=== PATIENT | female | born 1980 | race Caucasian/White ===

== ENCOUNTER 2017-02-08 08:07 | Inpatient (IN) | payer OTHER ==
[2017-02-08] VITALS (114 sets, daily range): BP systolic 98–156; BP diastolic 41–104; PULSE 77–122; RESP 1–18; TEMP 97.7–99.5; O2SAT 99
[~2017-02-08] VITALS: Ht 167.6 cm; Wt 78.5 kg
[~2017-02-08 08:07] MED LIST: IBUP-238 PO; PRENTAB72 PO; ZOLO50TA OR
[2017-02-08] MEDS ORDERED: LACTATED RINGER'S 1000 ML INJ 1,000 ML IV PRN (08:32)
[2017-02-08] MEDS ORDERED: ONDANSETRON HCL 4 MG/2 ML VIAL IV PRN (08:45)
[2017-02-08] MEDS ORDERED: SODIUM CHLORID 0.9% 500 ML INJ 500 ML IV PRN (08:45)
[2017-02-08] MEDS ORDERED: LIDOCAINE HCL 1% 50 ML VIAL I-DERMAL PRN (08:45)
[2017-02-08] MEDS ORDERED: MINERAL OIL 10 ML VIAL TOPICAL PRN (08:45)
[2017-02-08] MEDS ORDERED: OXYTOCIN 30 UNITS-500ML PREMIX 500 ML IV SCH (08:45)
[2017-02-08] MEDS ORDERED: LIDOCAINE HCL 1% 50 ML VIAL INFIL PRN (08:45)
[2017-02-08] MEDS ORDERED: CITRIC ACID-SODIUM CITRATE LIQ 30 ML UDC PO SCH (08:45)
[2017-02-08] MEDS ORDERED: OXYTOCIN 30 UNITS-500ML PREMIX 500 ML IV ONE (08:45)
--- NOTE | 2017-02-08 08:48 | HHI.HP ---
HPI Chief Complaint scheduled term labor induction, favorable Dudley score Date Seen: February 08, 2017 Time Seen: 08:30 Travel History International Travel<30 Days: No Contact w/Intl Traveler<30Days: No Known Affected Area: No History of Present Illness HPI 36 yo with EDC 02/12/17 presents for labor induction at term due to favorable Dudley score in office. 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 Pt c/o irregular contractions and pelvic pressure, /. No LOF or VB. Good FM. Para: 1 : 2 Last Menstrual Period: May 08, 2016 Miscarriage: 0 : 0 History Past Medical History Narrative Medical h/o Jian's thyroiditis chronic anxiety advanced maternal age with G2 Obstetric History Obstetric History G1 = 08/2012 FT at 41 wks, 12h labor, male 7# G2= current, male Past Surgical History Surgical History: No Previous Surgery Family History Family History: Negative Social History Alcohol Use: No Tobacco Use: No Substance Abuse: No Allergies-Medications (Allergen,Severity, Reaction): Coded Allergies: No Known Allergies (Unverified , 08/23/12) Home Meds Reported Medications Ibuprofen (Motrin)800 Mg [id number] Mg PO Q8HPRN #30 08/25/12 Vit W/ Ferrous Fumara () Tab1 Tab PO DAILY 08/23/12 Sertraline HCl (Zoloft)50 Mg Tab50 Mg OR DAILY 08/23/12 Review of Systems General / Constitutional: Weight Gain, No: Fever, Chills, Other Eyes: No: Diploplia, Blurred Vision, Visual changes, Pain, Photophobia HENT: No: Headaches, Vertigo, Lightheadedness Cardiovascular: No: Irregular Rhythm, Chest Pain or Discomfort, Palpitations, Tachycardia, Syncope, Varicosities, Edema, Cyanosis Respiratory: No: Cough, Short of Breath, Other Gastrointestinal: No: Nausea, Vomiting, Diarrhea Genitourinary: Pelvic Pain (pressure), No: Decreased Urinary Output, Oliguria Musculoskeletal: No: Limited ROM, Weakness, Cramping, Edema, Pain Skin: No Rash, No Itching, No Dryness, No Lumps, No Change in Pigmentation, No Change in Nails, No Alopecia, No Lesions Neurologic: No: Weakness, Dizziness, Syncope, Focal Abnormalities, Coordination Problem, Headache, Slurred Speech, Seizures Psychiatric: No: Depression, Suicidal Ideations, Homicidal Ideation Endocrine: No: Heat Intolerance, Cold Intolerance, Polydipsia, Polyuria, Other Physical Exam Narrative GENERAL: Well-nourished, well-developed patient. SKIN: Warm and dry. HEAD: Normocephalic and atraumatic. EYES: No scleral icterus. No injection or drainage. ENT: No nasal drainage noted. Mucous membranes pink. Airway patent. NECK: Supple, trachea midline. No JVD. CARDIOVASCULAR: Regular rate and rhythm without murmurs, gallops, or rubs. RESPIRATORY: Breath sounds equal bilaterally. No accessory muscle use. BREASTS: deferred. ABDOMEN/GI: Abdomen soft, non-tender, bowel sounds present, no rebound, no guarding Gravid to [39] weeks size Fundal Height: [39] GENITOURINARY: External Genitalia: intact and normal in appearance BUS glands: [wnl] Cervix: [mid] Dilatation: [2-3] Effacement: [50] Station: [-2] Presentation: [vtx] Membranes: [intact] Uterine Contractions: [irregular] FHT's: Category: I EXTREMITIES: No cyanosis or edema. BACK: Nontender without obvious deformity. No CVA tenderness. NEUROLOGICAL: Awake and alert. Motor and sensory grossly within normal limits. Five out of 5 muscle strength in all muscle groups. Normal speech. Data Data Vital Signs Reviewed: Yes Orders Admit To Inpatient (02/08/17 ) Code Status (02/08/17 08:32) Vital Signs (Adult) .Per protocol (02/08/17 08:32) Activity Oob Ad Merry (02/08/17 08:32) Heart (02/08/17 08:32) Amnioinfusion (02/08/17 08:32) Urinary Catheter Management .ONCE (02/08/17 08:32) Diet Liquid (02/08/17 Breakfast) Lactated Ringer's 1000 Ml Inj (Lr 1000 M (02/08/17 08:32) Lactated Ringer's 1000 Ml Inj (Lr 1000 M (02/08/17 08:32) Sodium Chlorid 0.9% 500 Ml Inj (Ns 500 M (02/08/17 08:45) Sodium Chlor 0.9% 1000 Ml Inj (Ns 1000 M (02/08/17 08:52) Lidocaine 1% Inj (50 Ml) (Xylocaine 1% I (02/08/17 08:45) Citric Acid-Sodium Citrate Liq (Bicitra (02/08/17 08:45) Ondansetron Inj (Zofran Inj) (02/08/17 08:45) Fentanyl Inj (Fentanyl Inj) (02/08/17 08:45) Fentanyl Inj (Fentanyl Inj) (02/08/17 08:45) Complete Blood Count With Diff (02/08/17 08:32) Hold Clot (02/08/17 08:32) Abo/Rh Blood Type (02/08/17 08:32) Urinalysis - C+S If Indicated (02/08/17 08:32) Resp Oxygen Non Rebreathe Mask (02/08/17 ) ^ Epidural / Intrathecal Infus (02/08/17 08:32) Oxytocin 30 Units-500ml Premix (Pitocin (02/08/17 08:45) Lidocaine 1% Inj (50 Ml) (Xylocaine 1% I (02/08/17 08:45) Light Mineral Oil (Muri-Lube Oil) (02/08/17 08:45) Inpatient Certification (02/08/17 ) Specimen To Be Collected PRN (02/08/17 08:32) Assessment/Plan Problem List: (1) Term (2) Labor and delivery indication for care or intervention Assessment and Plan 36 yo with edward male IUP at 39w3d by LMP c/w 11 wk sono, presents for term labor induction 1) IOL: favorable Dudley's score, pt aware of r/b/a & risk of failure, consents signed, plan pitocin/AROM as needed 2) GBS neg 3) AMA: neg cfDNA neg msAFP normal anatomy scan 4) h/o Jian's, now hypothyroid, controlled on levothyroxine 100mcg daily, continue 5) chronic anxiety, controlled on Zoloft 50mg daily x years 6) status: vertex, Cat I tracing, male, normal weekly testing in office since 36 wks due to maternal Zoloft use & AMA Discharge Planning routine, 2-3d PP Bronwyn Hinds MD February 08, 2017 08:48
[2017-02-08] MEDS ORDERED: SODIUM CHLOR 0.9% 1000 ML INJ 1,000 ML IV PRN (08:52)
[2017-02-08] MEDS: LACTATED RINGER'S 1000 ML INJ 1,000 ML IV SCH ×3 (08:58→15:15)
[2017-02-08 09:20] LABS: BACTERIA, URINE RARE /hpf; BLOOD, URINE NEG (NEG); COMMENT (UR) CULT NOT INDICATED; CULTURE IF INDICATED CULT NOT INDICATED; GLUCOSE,URINE NEG (NEG); KETONE, URINE NEG (NEG); MUCUS URINE FEW /lpf (OCC); NITRITE,URINE NEG (NEG); PH, URINE 7.5 (5.0-8.5); SQUAMOUS EPITHELIAL CELL URINE 7 /hpf (0-5); URINE COLOR YELLOW (YELLW/STRAW)
[2017-02-08 10:22] LABS: AUTOMATED NEUTROPHIL # 10.6 TH/MM3 (1.8-7.7); BASOPHIL % 0.1 % (0.0-2.0); EOSINOPHIL % 0.2 % (0.0-4.0); HEMATOCRIT 36.1 % (35.0-46.0); HEMO FLAGS DIFF FINAL; LYMPH % 17.1 % (9.0-44.0); LYMPHOCYTE # 2.3 TH/MM3 (1.0-4.8); MEAN CORPUSCULAR HEMOGLOBIN 30.6 PG (27.0-34.0); MEAN CORPUSCULAR HGB CONC 33.3 % (32.0-36.0); MONO % 4.2 % (0.0-8.0); NEUT % 78.4 % (16.0-70.0); PLATELET COUNT 175 TH/MM3 (150-450); RED BLOOD COUNT 3.93 MIL/MM3 (4.00-5.30); RED CELL DISTRIBUTION WIDTH 13.2 % (11.6-17.2); WHITE BLOOD COUNT 13.5 TH/MM3 (4.0-11.0)
--- NOTE | 2017-02-08 12:13 | PD.LABORPN ---
Subjective Subjective feeling slightly anxious but no consistent pain from contractions, denies LOF, endorses good FM Objective Vital Signs Vital Signs Date Time Temp Pulse Resp B/P Pulse Ox O2 Delivery O2 Flow Rate FiO2 02/08/17 12:02 98.8 02/08/17 11:41 99.2 02/08/17 11:40 16 02/08/17 11:37 91 143/86 02/08/17 11:37 12 02/08/17 11:30 93 151/89 02/08/17 11:05 100 154/87 02/08/17 11:00 95 150/82 02/08/17 10:59 100 144/89 02/08/17 10:52 16 02/08/17 10:45 100 155/87 02/08/17 10:30 99 151/86 02/08/17 10:29 101 150/88 02/08/17 10:25 105 02/08/17 10:19 84 147/84 02/08/17 10:14 88 149/85 02/08/17 08:56 98.5 02/08/17 08:55 12 02/08/17 08:54 88 134/77 Objective Pelvic Exam: Cervix: mid Dilatation: [3] Effacement: [50] Station: [-2] Presentation: [vtx] Membranes: AROM'd this check, clear Uterine Contractions: [q4-5 min] FHT's: Category: [I] Baseline: [130s] Reactive: [y] Variability: [y] Decels: [n] Assessment/Plan Problem List: (1) Term (2) Labor and delivery indication for care or intervention Assessment and Plan 36 yo at 39w3d IOL at term AROM'd this check, continue pitocin augmentation, epidural if desired BP slightly elevated & proteinuria, will check CMP/UA; possible anxiety component to BP currently status: Cat I tracing, vtx Bronwyn Hinds MD February 08, 2017 12:13
[2017-02-08] MEDS ORDERED: fentaNYL 2MCG-BUPIV 0.125% INJ 100 ML ONE (13:20)
[2017-02-08] MEDS ORDERED: ePHEDrine/NS 25 MG/5 ML SYR ONE ×2 (13:21→13:56)
[2017-02-08 13:29] LABS: ALT (GPT) 11 U/L (10-53); ANION GAP 11 MEQ/L (5-15); AST (GOT) 16 U/L (15-37); BICARBONATE 22.2 MEQ/L (21.0-32.0); BLOOD UREA NITROGEN 5 MG/DL (7-18); CHLORIDE 105 MEQ/L (98-107); GLOMERULAR FILTRATION RATE 112 ML/MIN (>89); SODIUM (NA) 138 MEQ/L (136-145); URIC ACID 3.9 MG/DL (2.6-6.0)
[2017-02-08 13:31] LABS: ALKALINE PHOSPHATASE 154 U/L (45-117); TOTAL BILIRUBIN ADULT 0.2 MG/DL (0.2-1.0)
[2017-02-08] MEDS ORDERED: TERBUTALINE INJ 1 MG/ML AMP ONE (14:38)
--- NOTE | 2017-02-08 15:00 | PD.LABORPN ---
Subjective Subjective 36 yo with EDC 02/12/17 presents for labor induction at term due to favorable Dudley score in office. 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 Called to see patient due to bradycardia with rate at 80 for approx 5 minutes. Pitocin is off, FSE placed, IV fluid bolus, and maternal O2 placed with left lateral positioning. s/p epitdural with normal blood pressure. .25mg Terbulatine given for frequent contractions. FHR has recovered to a baseline of [address] Hinds has been notified of return to Category 1 FHR tracing. Objective Vital Signs Vital Signs Date Time Temp Pulse Resp B/P Pulse Ox O2 Delivery O2 Flow Rate FiO2 02/08/17 14:25 96 02/08/17 14:25 98 12 139/79 02/08/17 14:23 91 146/72 02/08/17 14:20 96 02/08/17 14:20 104 155/80 02/08/17 14:16 93 156/76 02/08/17 14:15 103 02/08/17 14:10 105 02/08/17 14:10 99 140/76 02/08/17 14:05 99 02/08/17 14:05 99 145/71 02/08/17 14:03 99 150/76 02/08/17 14:00 100 02/08/17 14:00 95 143/85 02/08/17 13:55 98 02/08/17 13:30 90 14 128/67 02/08/17 13:30 90 128/67 02/08/17 13:00 99 156/83 02/08/17 12:47 98 14 156/85 02/08/17 12:02 98.8 02/08/17 11:41 99.2 02/08/17 11:40 16 02/08/17 11:37 91 143/86 02/08/17 11:37 12 02/08/17 11:30 93 151/89 02/08/17 11:05 100 154/87 02/08/17 11:00 95 150/82 02/08/17 10:59 100 144/89 02/08/17 10:52 16 02/08/17 10:45 100 155/87 02/08/17 10:30 99 151/86 02/08/17 10:29 101 150/88 02/08/17 10:25 105 02/08/17 10:19 84 147/84 02/08/17 10:14 88 149/85 02/08/17 08:56 98.5 02/08/17 08:55 12 02/08/17 08:54 88 134/77 Objective Pelvic Exam: Cervix: [-] Dilatation: [-] Effacement: [-] Station: [-] Presentation: [-] Membranes: [intact or ruptured] Uterine Contractions: [-] FHT's: Category: [-] Baseline: [-] Reactive: [-] Variability: [-] Decels: [-] Assessment/Plan Problem List: (1) Term (2) Labor and delivery indication for care or intervention Lizabeth Manrique MD February 08, 2017 15:00
[2017-02-08] MEDS ORDERED: MEASLES, MUMPS, RUBELLA VACCINE 0.5 ML VIAL SQ ONE (16:00)
[2017-02-08] MEDS ORDERED: DIPHTH/TETANUS/ACEL PERTUSSIS (BOOSTER) 0.5 ML VIAL/PFS IM ONE (16:00)
--- NOTE | 2017-02-08 20:09 | PD.OB.DELI ---
Delivery Date: February 08, 2017 Anesthesia: Epidural Episiotomy: None Vaginal Delivery: Normal Presentation: Vertex Nuchal Cord: x1 (clamped & cut at perineum) Delayed cord clamping (45 sec): No : Male, Single One Minute : 8 Five Minute : 9 Weight: 7#5oz Placenta: Spontaneous delivery, Intact, 3 vessel cord Laceration: No lacerations Additional Information EBL 50 mL healthy male "Mau" Bronwyn Hinds MD February 08, 2017 20:09
--- NOTE | 2017-02-08 20:12 | HHI.DCPOC ---
Discharge Care Plan Diagnosis: (1) (spontaneous vaginal delivery) Your Health Problems Are: Vaginal delivery Report Symptoms to Your Doctor -Temperate above 100.5 degrees -Redness, of incision or excessive or foul smelling drainage -Unusual pain or calf pain -Increased vaginal bleeding -Painful or difficulty urinating -Feelings of extreme sadness or anxiety after 2 weeks Goals to Promote Your Health * To prevent worsening of your condition and complications * To maintain your health at the optimal level Directions to Meet Your Goals Take your medications as prescribed Follow your dietary instruction Follow activity as directed Ensure plenty of rest for recovery Drink fluids for hydration Keep your appointments as scheduled Take your immunizations and boosters as scheduled If your symptoms worsen call your PCP, if no PCP go to Urgent Care Center or Emergency Room Smoking is Dangerous to Your Health. Avoid second hand smoke Call the 24-hour crisis hotline for domestic abuse at Bronwyn Hinds MD February 08, 2017 20:12
[2017-02-08] MEDS ORDERED: IBUP-232 PO (20:13)
[2017-02-08] MEDS ORDERED: ZOLPIDEM TARTRATE 5 MG TAB PO PRN (20:15)
[2017-02-08] MEDS ORDERED: DOCUSATE SODIUM 50 MG/SENNA 8.6 MG TAB PO PRN (20:15)
[2017-02-08] MEDS ORDERED: SODIUM CHLORIDE 0.9% FLUSH 10 ML FLUSH IV FLUSH PRN (20:15)
[2017-02-08] MEDS ORDERED: WITCH HAZEL 50%/GLYCERIN 12.5% 40 PAD JAR TOPICAL PRN (20:15)
[2017-02-08] MEDS ORDERED: ONDANSETRON ODT 4 MG TAB PO PRN (20:15)
[2017-02-08] MEDS ORDERED: oxyCODONE/ACETAMINOPHEN 5 MG/325 MG TAB PO PRN ×2 (20:15)
[2017-02-08] MEDS ORDERED: BENZOCAINE 20% TOPICAL SPRAY 60 ML CAN TOPICAL PRN (20:15)
[2017-02-08] MEDS ORDERED: ALUMINUM/MAGNESIUM/SIMETH 30 ML CUP PO PRN (20:15)
[2017-02-08] MEDS ORDERED: SODIUM CHLORIDE 0.9% FLUSH 10 ML FLUSH IV FLUSH SCH (21:00)
[2017-02-08] MEDS: IBUPROFEN 600 MG TAB PO PRN (21:29)
[2017-02-09] MEDS: LEVOTHYROXINE SODIUM 100 MCG TAB PO SCH (06:20)
[2017-02-09] MEDS: IBUPROFEN 600 MG TAB PO PRN ×3 (06:20→20:46)
--- NOTE | 2017-02-09 07:48 | HHI.OB ---
Subjective Post Day: 1 Objective Vitals/I&O Vital Signs Date Time Temp Pulse Resp B/P Pulse Ox O2 Delivery O2 Flow Rate FiO2 02/08/17 23:00 97.7 77 18 02/08/17 23:00 137/77 02/08/17 22:11 99.1 02/08/17 22:00 93 145/76 02/08/17 21:45 88 145/74 02/08/17 21:15 93 142/79 02/08/17 20:46 91 138/67 02/08/17 20:31 110 144/61 02/08/17 20:30 18 02/08/17 20:15 91 135/64 02/08/17 20:12 92 136/63 02/08/17 20:11 18 02/08/17 19:45 101 135/60 02/08/17 19:30 94 146/62 02/08/17 19:20 98.1 18 02/08/17 19:15 93 134/76 02/08/17 19:10 95 132/62 02/08/17 19:05 90 130/62 02/08/17 19:00 106 126/69 02/08/17 18:55 93 133/73 02/08/17 18:50 100 126/65 02/08/17 18:45 93 137/66 02/08/17 18:41 16 02/08/17 18:40 90 130/64 02/08/17 18:35 98 02/08/17 18:35 143/63 02/08/17 18:30 96 133/64 02/08/17 18:30 16 02/08/17 18:25 96 122/62 02/08/17 18:20 90 128/60 02/08/17 18:15 90 122/60 02/08/17 18:10 86 132/65 02/08/17 18:05 89 135/62 02/08/17 18:01 91 136/71 02/08/17 18:00 88 124/104 02/08/17 17:55 87 120/55 02/08/17 17:50 90 130/57 02/08/17 17:45 91 131/63 02/08/17 17:40 91 125/59 02/08/17 17:35 91 139/56 5/30/17 17:30 96 137/56 02/08/17 17:30 16 02/08/17 17:28 98.4 02/08/17 17:25 99 133/76 02/08/17 17:20 97 130/65 02/08/17 17:16 97 150/73 02/08/17 17:10 90 123/65 02/08/17 17:05 95 140/69 02/08/17 17:00 99 135/65 02/08/17 16:56 101 128/64 02/08/17 16:50 96 122/59 02/08/17 16:45 101 127/77 02/08/17 16:40 98 126/76 02/08/17 16:35 101 128/74 02/08/17 16:30 94 141/69 02/08/17 16:25 102 148/73 02/08/17 16:25 16 02/08/17 16:22 108 123/88 02/08/17 16:21 110 98/60 02/08/17 16:20 98.7 02/08/17 16:20 101 02/08/17 16:16 107 140/62 02/08/17 16:15 115 02/08/17 16:10 111 133/74 02/08/17 16:10 122 02/08/17 16:05 111 02/08/17 16:05 101 135/71 02/08/17 16:00 106 02/08/17 16:00 108 132/58 02/08/17 15:55 108 120/63 02/08/17 15:55 105 02/08/17 15:50 109 126/63 02/08/17 15:50 108 02/08/17 15:45 109 112/62 02/08/17 15:45 110 02/08/17 15:40 111 112/68 02/08/17 15:40 108 02/08/17 15:35 102 137/75 02/08/17 15:35 104 02/08/17 15:30 110 02/08/17 15:30 108 145/84 02/08/17 15:25 112 136/76 02/08/17 15:25 106 02/08/17 15:22 1 02/08/17 15:22 18 02/08/17 15:20 106 02/08/17 15:20 107 146/79 02/08/17 15:17 99.2 02/08/17 15:15 107 140/73 02/08/17 15:15 114 02/08/17 15:10 108 02/08/17 15:10 108 136/79 02/08/17 15:05 106 142/79 02/08/17 15:05 108 02/08/17 15:00 108 146/81 02/08/17 15:00 18 02/08/17 15:00 99.5 02/08/17 15:00 108 02/08/17 14:55 110 135/84 02/08/17 14:55 121 02/08/17 14:50 101 02/08/17 14:50 94 145/82 02/08/17 14:45 88 02/08/17 14:45 88 142/83 02/08/17 14:40 93 02/08/17 14:40 101 154/89 02/08/17 14:38 120 155/91 02/08/17 14:35 99 02/08/17 14:35 88 140/86 02/08/17 14:35 92 02/08/17 14:33 90 131/93 02/08/17 14:31 83 139/79 02/08/17 14:30 89 139/41 02/08/17 14:30 87 02/08/17 14:25 96 02/08/17 14:25 98 12 139/79 02/08/17 14:23 91 146/72 02/08/17 14:20 96 02/08/17 14:20 104 155/80 02/08/17 14:16 93 156/76 02/08/17 14:15 103 02/08/17 14:10 105 02/08/17 14:10 99 140/76 02/08/17 14:05 99 02/08/17 14:05 99 145/71 02/08/17 14:03 99 150/76 02/08/17 14:00 100 02/08/17 14:00 95 143/85 02/08/17 13:55 98 02/08/17 13:30 90 14 128/67 02/08/17 13:30 90 128/67 02/08/17 13:00 99 156/83 02/08/17 12:47 98 14 156/85 02/08/17 12:02 98.8 02/08/17 11:41 99.2 02/08/17 11:40 16 02/08/17 11:37 91 143/86 02/08/17 11:37 12 02/08/17 11:30 93 151/89 02/08/17 11:05 100 154/87 02/08/17 11:00 95 150/82 02/08/17 10:59 100 144/89 02/08/17 10:52 16 02/08/17 10:45 100 155/87 02/08/17 10:30 99 151/86 02/08/17 10:29 101 150/88 02/08/17 10:25 105 02/08/17 10:19 84 147/84 02/08/17 10:14 88 149/85 02/08/17 08:56 98.5 02/08/17 08:55 12 02/08/17 08:54 88 134/77 Objective Remarks GENERAL: Well-nourished, well-developed patient. CARDIOVASCULAR: Regular rate and rhythm without murmurs, gallops, or rubs. RESPIRATORY: Breath sounds equal bilaterally. No accessory muscle use. ABDOMEN/GI: Abdomen soft, non-tender. Fundus: Firm, non-tender at umbilicus. GENITOURINARY: Light to moderate bleeding. EXTREMITIES: No cyanosis or edema, non-tender, without signs of DVT. Medications and IVs Current Medications Medications (Trade) Dose Ordered Sig/Sheng Route Start Time Stop Time Status Last Admin (NS Flush) 2 ml BID IV FLUSH 02/08/17 21:00 (NS Flush) 2 ml UNSCH PRN IV FLUSH 02/08/17 20:15 (Tylenol) 650 mg Q4H PRN PO 02/08/17 20:15 (Motrin) 600 mg Q6H PRN PO 02/08/17 20:15 02/09/17 06:20 (Percocet 5-325 Mg) 1 tab Q4H PRN PO 02/08/17 20:15 (Percocet 5-325 Mg) 2 tab Q4H PRN PO 02/08/17 20:15 (Americaine 20% Top Spr) 1 spray Q4H PRN TOPICAL 02/08/17 20:15 5/30/17 23:16 (Tucks Pads) 1 applic QID PRN TOPICAL 02/08/17 20:15 02/08/17 23:15 (Deneen-Colace) 2 tab Q12H PRN PO 02/08/17 20:15 02/08/17 23:16 (Ambien) 5 mg HS PRN PO 02/08/17 20:15 (Mag-Al Plus Susp Liq) 15 ml Q8H PRN PO 02/08/17 20:15 (Zofran Odt) 4 mg Q6H PRN PO 02/08/17 20:15 (Synthroid) 100 mcg DAILY@0600 PO 02/09/17 06:00 02/09/17 06:20 (Zoloft) 50 mg DAILY PO 02/09/17 09:00 Assessment/Plan Problem List: (1) Term (2) Labor and delivery indication for care or intervention Assessment and Plan 36 yo with edward male IUP at 39w3d by LMP c/w 11 wk sono, presents for term labor induction 1) IOL: favorable Dudley's score, pt aware of r/b/a & risk of failure, consents signed, plan pitocin/AROM as needed 2) GBS neg 3) AMA: neg cfDNA neg msAFP normal anatomy scan 4) h/o Jian's, now hypothyroid, controlled on levothyroxine 100mcg daily, continue 5) chronic anxiety, controlled on Zoloft 50mg daily x years 6) status: vertex, Cat I tracing, male, normal weekly testing in office since 36 wks due to maternal Zoloft use & AMA Discharge Planning routine, 2-3d PP circ in aim counseled Alix Pritchard MD February 09, 2017 07:48
[2017-02-09 09:05] VITALS: BP 134/78; PULSE 79; RESP 18; TEMP 98.3
[2017-02-09] MEDS: SERTRALINE HCL 50 MG TAB PO SCH (10:33)
[2017-02-09] MEDS: ACETAMINOPHEN 325 MG TAB PO PRN ×2 (14:15→20:46)
[2017-02-09 20:00] VITALS: BP 137/80; PULSE 70; RESP 18; TEMP 98
[2017-02-10] MEDS: ACETAMINOPHEN 325 MG TAB PO PRN ×2 (03:14→10:37)
[2017-02-10] MEDS: IBUPROFEN 600 MG TAB PO PRN ×2 (03:14→10:37)
[2017-02-10] MEDS: LEVOTHYROXINE SODIUM 100 MCG TAB PO SCH (06:20)
--- NOTE | 2017-02-10 07:43 | HHI.OB ---
Subjective Post Day: 2 Remarks no complaints, Objective Vitals/I&O Vital Signs Date Time Temp Pulse Resp B/P Pulse Ox O2 Delivery O2 Flow Rate FiO2 02/09/17 20:00 137/80 02/09/17 20:00 98.0 70 18 02/09/17 09:05 98.3 02/09/17 09:05 79 18 134/78 Objective Remarks GENERAL: Well-nourished, well-developed patient. CARDIOVASCULAR: Regular rate and rhythm without murmurs, gallops, or rubs. RESPIRATORY: Breath sounds equal bilaterally. No accessory muscle use. ABDOMEN/GI: Abdomen soft, non-tender. Fundus: Firm, non-tender at umbilicus. GENITOURINARY: Light to moderate bleeding. EXTREMITIES: No cyanosis or edema, non-tender, without signs of DVT. Medications and IVs Current Medications Medications (Trade) Dose Ordered Sig/Sheng Route Start Time Stop Time Status Last Admin (NS Flush) 2 ml BID IV FLUSH 02/08/17 21:00 (NS Flush) 2 ml UNSCH PRN IV FLUSH 02/08/17 20:15 (Tylenol) 650 mg Q4H PRN PO 02/08/17 20:15 02/10/17 03:14 (Motrin) 600 mg Q6H PRN PO 02/08/17 20:15 02/10/17 03:14 (Percocet 5-325 Mg) 1 tab Q4H PRN PO 02/08/17 20:15 (Percocet 5-325 Mg) 2 tab Q4H PRN PO 02/08/17 20:15 (Americaine 20% Top Spr) 1 spray Q4H PRN TOPICAL 02/08/17 20:15 02/08/17 23:16 (Tucks Pads) 1 applic QID PRN TOPICAL 02/08/17 20:15 02/08/17 23:15 (Deneen-Colace) 2 tab Q12H PRN PO 02/08/17 20:15 02/08/17 23:16 (Ambien) 5 mg HS PRN PO 02/08/17 20:15 (Mag-Al Plus Susp Liq) 15 ml Q8H PRN PO 02/08/17 20:15 (Zofran Odt) 4 mg Q6H PRN PO 02/08/17 20:15 (Synthroid) 100 mcg DAILY@0600 PO 02/09/17 06:00 02/10/17 06:20 (Zoloft) 50 mg DAILY PO 02/09/17 09:00 02/09/17 10:33 Assessment/Plan Problem List: (1) Term (2) Labor and delivery indication for care or intervention (3) (spontaneous vaginal delivery) Assessment and Plan 36 yo with edward male IUP at 39w3d by LMP c/w 11 wk sono, presents for term labor induction 1) IOL: favorable Dudley's score, pt aware of r/b/a & risk of failure, consents signed, plan pitocin/AROM as needed 2) GBS neg 3) AMA: neg cfDNA neg msAFP normal anatomy scan 4) h/o Jian's, now hypothyroid, controlled on levothyroxine 100mcg daily, continue 5) chronic anxiety, controlled on Zoloft 50mg daily x years 6) status: vertex, Cat I tracing, male, normal weekly testing in office since 36 wks due to maternal Zoloft use & AMA Discharge Planning routine, 2-3d PP circ today counseled Attending Attestation pt seen by Devi Sandra MD Feb 10, 2017 07:43
[2017-02-10] MEDS ORDERED: HYDR-3533 PO (08:08)
[2017-02-10 08:40] VITALS: BP 118/81; PULSE 76; RESP 16; TEMP 97.9
[2017-02-10] MEDS: SERTRALINE HCL 50 MG TAB PO SCH (08:41)
== END 2017-02-10 13:04 | disposition home or self-care (01) | DRG 775 ==
LOC: H2EA 08:07 → H1EA 22:14
PROVIDERS: ADMIT Obstetrics & Gynecology; ATTEND Obstetrics & Gynecology
PROC: 10E0XZZ Delivery of Products of Conception, External Approach (ICD-10-PCS; principal; 2017-02-08)
PROC: 10907ZC Drainage of Amniotic Fluid, Therapeutic from Products of Conception, Via Natural or Artificial Opening (ICD-10-PCS; 2017-02-08)
PROC: 00HU33Z Insertion of Infusion Device into Spinal Canal, Percutaneous Approach (ICD-10-PCS; 2017-02-08)
PROC: 3E0R3CZ (ICD-10-PCS; 2017-02-08)
DX: O99.344 Other mental disorders complicating childbirth (principal); E03.9 Hypothyroidism, unspecified; O99.284 Endocrine, nutritional and metabolic diseases complicating childbirth; O09.523 Supervision of elderly multigravida, third trimester; F41.9 Anxiety disorder, unspecified; Z3A.39 39 weeks gestation of pregnancy; O69.81X0 Labor and delivery complicated by cord around neck, without compression, not applicable or unspecified; Z37.0 Single live birth
CPT/HCPCS: 59025; 80053; 81001; 84550; 85025; 86900; 86901; J2590; J3105; J7030; J7120